=== PATIENT | female | born 1975 | race Caucasian/White ===

== ENCOUNTER 2016-08-20 12:24 | Emergency (ER) | payer OTHER ==
[~2016-08-20] VITALS: Ht 158.8 cm; Wt 57.2 kg
[2016-08-20 12:28] VITALS: TEMP 36.8; Ht 158.8 cm; Wt 57.2 kg
[2016-08-20] MEDS ORDERED: BUPIVACAINE 0.5 % 5 MG/1 ML MPF 30ML VIAL INFIL ONE (12:45)
[2016-08-20] MEDS ORDERED: XYLOCAINE 1%/SOD BICARB 20 ML VIAL INFIL ONE (12:45)
[2016-08-20] MEDS ORDERED: CETI10TA84 PO (12:51)
[2016-08-20] MEDS ORDERED: ALPR-411 PO (12:51)
[2016-08-20] MEDS ORDERED: BUPRTAB51 PO (12:51)
--- NOTE | 2016-08-20 13:37 | DIAGNOSTIC IMAGING REPORT ---
LEFT THIRD/MIDDLE FINGER 3 VIEWS CLINICAL HISTORY: Left middle finger pain status post trauma COMPARISON: None. DISCUSSION: No fractures or dislocations are visualized. Height and IMPRESSION: No fractures or dislocations identified. Electronically signed by: Marc Garcia M.D. 08/20/2016 1:35 PM
[2016-08-20] MEDS ORDERED: CEPH500C PO (14:43)
--- NOTE | 2016-08-20 14:43 | EMERGENCY ROOM VISIT NOTE ---
ED Visit Note First contact with patient: 12:35 CHIEF COMPLAINT: Finger laceration HISTORY OF PRESENT ILLNESS: This 41-year-old female patient presents to the emergency department ambulatory after cutting the left third finger which occurred just prior to arrival. The bleeding has not stopped. Denies weakness or numbness of the finger. The patient has full range of motion of the fingers. The patient rates the pain as stinging and 3/10. The patient denies any other injuries. The patient's tetanus shot is up to date. The patient was seen at [facility] prior to evaluation here and was sent here for x-ray and laceration repair. REVIEW OF SYSTEMS: A 6 system review of systems was completed with positives and pertinent negatives listed in the HPI. ALLERGIES: Domperidone MEDICATIONS: See med list PMH: Anxiety SOCIAL HISTORY: The patient lives locally. She is employed. Nonsmoker. PHYSICAL EXAM: Vital Signs: Reviewed Nurse's notes, vital signs stable. GENERAL : This is a 41-year-old female, moderately anxious in appearance, well developed , well nourished. SKIN: There is a 1.5 cm long laceration on the lateral aspect of the left third finger which does extend partly through the fingernail. The edges gape apart with traction. There is no foreign material in the wound and it looks clean. There is minimal active bleeding. No deep structures such as tendons, bones, or significant blood vessels are seen in the base of the wound. Extension and flexion of the finger is full and strong. Full range of motion of the wrist and other fingers. Capillary refill less than 2 seconds. Normal sensation to light and sharp touch. RADIOGRAPHIC FINDINGS: LEFT THIRD/MIDDLE FINGER 3 VIEWS CLINICAL HISTORY: Left middle finger pain status post trauma COMPARISON: None. DISCUSSION: No fractures or dislocations are visualized. Height and IMPRESSION: No fractures or dislocations identified. EMERGENCY DEPARTMENT COURSE: I examined the patient. X-ray of the fingers is obtained and revealed no acute findings. Verbal consent was obtained to perform the procedure. Using sterile technique the wound was cleansed with Betadine. 6 ml of a 2-1 solution of 1% buffered lidocaine and 0.5% bupivacaine was used to perform a digital block to anesthetize the patient. The area was sterilely draped. Once the patient was anesthetized, the wound was copiously irrigated under pressure with sterile saline. The wound was explored and there were no deep structures injured. The laceration was repaired using 5 simple interrupted 5-0 nylon sutures. The patient tolerated the procedure well. Hemostasis was achieved. The area was cleaned with sterile saline and dressed with bacitracin ointment and bandage. The patient was discharged home in good condition. DIAGNOSIS: Finger laceration Current/Historical Medications Scheduled Bupropion (Wellbutrin-Xl), 300 MG PO DAILY Cephalexin Monohydrate (Keflex), 500 MG PO TID Cetirizine (Zyrtec), 10 MG PO DAILY Fluconazole (Diflucan), 150 MG PO DAILY Scheduled PRN Alprazolam (Xanax), 0.5 MG PO for Anxiety/Agitation Allergies Coded Allergies: Domperidone (Unverified Allergy, Severe, Hallucinations , 08/20/16) Vital Signs Date Time Temp Pulse Resp B/P Pulse Ox O2 Delivery O2 Flow Rate FiO2 08/20/16 14:55 83 83 118/70 100 Room Air 08/20/16 12:28 36.8 92 18 113/77 99 Medications Administered Medications (Trade) Dose Ordered Sig/Eldon Route Start Time Stop Time Status Last Admin Dose Admin Lidocaine HCl (Buffered Lidocaine 1% Inj) 20 ml ONE ONCE INFIL 08/20/16 12:45 08/20/16 12:46 DC 08/20/16 12:51 5 ML Bupivacaine HCl (Marcaine 0.5% MPF Inj) 30 ml NOW ONCE INFIL 08/20/16 12:45 08/20/16 12:46 DC 08/20/16 12:51 30 ML Departure Information Impression Primary Impression: Finger laceration Dispostion Home / Self-Care Condition GOOD Prescriptions Fluconazole (DIFLUCAN) 150 Mg Tab 150 MG PO DAILY for 2 Days, #2 TAB Take one tablet if you have symptoms, then repeat the second dose in 3 days if you have continued symptoms. Prov: Kortney Mcginnis PA-C 08/20/16 Cephalexin Monohydrate (Keflex) 500 Mg Cap 500 MG PO TID for 7 Days, #21 CAP Prov: Kortney Mcginnis PA-C 08/20/16 Referrals Erica Meza C.R.N.P. (PCP) Patient Instructions A Signature Page, [facility] Additional Instructions You have received 5 sutures on your finger. These sutures are NOT dissolvable and WILL need to be removed by a health care provider in 8-10 days. You can return to the Emergency Department or contact your Primary Care Provider to have the sutures removed.. You were prescribed Keflex to be taken as prescribed. This is an antibiotic. All antibiotics have the potential to cause diarrhea. Stop this medication and contact a medical provider if you were to develop any significant adverse side effects including: wheezing, shortness of breath, passing out, vomiting, or a diffuse rash. Always take antibiotics as directed and COMPLETE the ENTIRE course regardless of the improvement of your symptoms. Proper wound care is essential for adequate wound healing and infection prevention. You can shower and clean the wound with soap and water. Do not scour over the wound, pat dry with a towel. Do not submerse the wound (i.e. bathe or dish wash) until the sutures have been removed. You can use an antibiotic ointment with a dressing over the wound for the next 3-4 days. After this time you may leave the wound dry and open to the air. If crust develops over the wound you can use a Q-tip to apply a 1:1 peroxide:water solution to clean the wound. Look for signs of infection of the wound including: increased pain, swelling, foul discharge, streaking, or increased temperature. If any of these are noticed you should return to the Emergency Department for further assessment and treatment. As with any laceration you may have received nerve damage to the surrounding tissues. This damage may or may not be permanent. You should keep the area covered with sunscreen for the first 6 months to 1 year when at risk for exposure to help minimize scarring. You can also use scar reducing creams or Vitamin E oil to help minimize scarring. For pain control, you can use the following [id number] medicines (if >12 yo): - Regular strength (325mg/tab) Tylenol (acetaminophen) 2 tabs every 4-6 hours as needed. Do not exceed 12 tablets in a 24 hour period. Avoid taking more than 4 grams (4000 mg) of Tylenol per day. This includes any other sources of acetaminophen you may take on a regular basis. - Regular strength (200 mg/tab) Advil (ibuprofen) 1-2 tabs every 4-6 hours as needed. Do not exceed a dose of 3200 mg per day. Return to the emergency department if your symptoms worsen despite treatment course outlined above.
[2016-08-20 14:55] VITALS: BP 118/70; PULSE 83; O2SAT 100
[2016-08-20] MEDS ORDERED: FLUC150T54 PO (15:02)
== END 2016-08-20 15:18 | disposition home or self-care (01) ==
LOC: C.EDB 12:25 → C.EDD 15:18
DX: S61.213A Laceration without foreign body of left middle finger without damage to nail, initial encounter (principal); X58.XXXA Exposure to other specified factors, initial encounter

== ENCOUNTER → 2017-03-31 | Outpatient (CLI) | payer OTHER ==
[~2017-03-31] MED LIST: ALPR-411 PO; BUPRTAB51 PO; CETI10TA84 PO
== END | disposition home or self-care (01) ==
LOC: C.PAPS 08:18
PROVIDERS: ATTEND Nurse Practitioner
DX: Z20.2 Contact with and (suspected) exposure to infections with a predominantly sexual mode of transmission (principal)

== ENCOUNTER → 2017-03-31 | Outpatient (CLI) | payer OTHER ==
[2017-04-03 02:55] LABS: CHLAMYDIA TRACH RNA*** NOT DETECTED (NOT DETECTED); GC (NEIS GONORRHOEAE)RNA** NOT DETECTED (NOT DETECTED)
== END | disposition home or self-care (01) ==
LOC: C.LABSPEC 17:56
PROVIDERS: ATTEND Nurse Practitioner
DX: Z20.2 Contact with and (suspected) exposure to infections with a predominantly sexual mode of transmission (principal)

== ENCOUNTER → 2017-04-01 | Outpatient (CLI) | payer OTHER | END | disposition home or self-care (01) | LOC: C.LABBFT 12:44 | PROVIDERS: ATTEND Nurse Practitioner | DX: Z20.2 Contact with and (suspected) exposure to infections with a predominantly sexual mode of transmission (principal) ==

== ENCOUNTER → 2017-09-19 | Outpatient (CLI) | payer OTHER ==
--- NOTE | 2017-09-19 18:50 | DIAGNOSTIC IMAGING REPORT ---
CERVICAL SPINE 2 OR 3 VIEWS CLINICAL HISTORY: 42 years-old Female presenting with PAIN IN UNSPECIFIED JOINT. TECHNIQUE: Frontal, lateral, and open-mouth odontoid views of the cervical spine were obtained. COMPARISON: None. FINDINGS: Slight reversal of normal cervical lordosis with mild kyphotic deformity centered at C3-4. Vertebral body heights essentially maintained. Intervertebral disc height loss at C3-4 and to a greater extent at C4-5 and C5-6. No radiographic evidence of acute fracture or subluxation. Disc osteophyte complexes noted from C3-4 through C5-6. Mild posterior bony spurring may be present at C5-6. No prevertebral soft tissue swelling. Normal atlantodental interval. Lateral masses of C1 articulate normally with C2. Lung apices clear. IMPRESSION: 1. 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 2. No radiographic evidence of acute osseous injury. Electronically signed by: Guzman Munoz M.D. 09/19/2017 6:49 PM Dictated Date/Time: 09/19/2017 6:46 PM
[2017-09-19 19:03] LABS: HEMATOCRIT 41.1 % (37-47); HEMOGLOBIN 14.2 g/dL (12.0-16.0); MEAN CELL VOLUME 96.9 fL (80-100); MEAN CORPUSCULAR HEMOGLOBIN 33.5 pg (25-34); MEAN CORPUSCULAR HGB CONC 34.5 g/dl (32-36); MEAN PLATELET VOLUME 11.3 fL (7.4-10.4); PLATELET COUNT 269 K/uL (130-400); RED CELL DISTRIBUTION WIDTH CV 12.6 % (11.5-14.5); RED CELL DISTRIBUTION WIDTH SD 44.4 fL (36.4-46.3); WHITE BLOOD COUNT 9.46 K/uL (4.8-10.8)
[2017-09-19 19:28] LABS: ALBUMIN 4.4 gm/dl (3.4-5.0); ALT/SGPT 26 U/L (12-78); AST/SGOT 16 U/L (15-37); BLOOD UREA NITROGEN 19 mg/dl (7-18); CALCIUM 9.7 mg/dl (8.5-10.1); CARBON DIOXIDE 24 mmol/L (21-32); CREATININE 1.01 mg/dl (0.60-1.20); GLUCOSE 84 mg/dl (70-99); POTASSIUM 3.9 mmol/L (3.5-5.1); SODIUM 136 mmol/L (136-145)
[2017-09-19 19:40] LABS: ALKALINE PHOSPHATASE 63 U/L (45-117); TOTAL PROTEIN 8.3 gm/dl (6.4-8.2)
[2017-09-25 00:29] LABS: ANTI-SS-A <1.0 NEG AI (<1.0 NEG); ANTI-SS-B <1.0 NEG AI (<1.0 NEG)
== END | disposition home or self-care (01) ==
LOC: C.LAB 18:03
PROVIDERS: ATTEND Family Medicine
DX: R53.82 Chronic fatigue, unspecified (principal); H04.129 Dry eye syndrome of unspecified lacrimal gland; M25.50 Pain in unspecified joint

== ENCOUNTER → 2017-10-28 | Outpatient (CLI) | payer OTHER ==
[2017-10-30 14:30] LABS: ANA SCREEN TC 249X NEGATIVE (NEGATIVE)
== END | disposition home or self-care (01) ==
LOC: C.LAB1850 16:24
PROVIDERS: ATTEND Dermatology
DX: R53.83 Other fatigue (principal); R21 Rash and other nonspecific skin eruption; M54.5 Low back pain